=== PATIENT | male | born 1985 | race Caucasian/White ===

== ENCOUNTER 2020-02-20 12:44 | Emergency (ER) | payer MEDICAID, SELFPAY ==
[2020-02-20 12:46] VITALS: BP 144/82; PULSE 81; RESP 16; TEMP 37.4; O2SAT 96; BMI 21.4
--- NOTE | 2020-02-20 13:05 | EKG12_ITS ---
Test Reason : CP Blood Pressure : / mmHG Vent. Rate : 067 BPM Atrial Rate : 067 BPM P-R Int : 172 ms QRS Dur : 108 ms QT Int : 412 ms P-R-T Axes : 059 055 039 degrees QTc Int : 435 ms Somatic/Motion Artifact Normal sinus rhythm Normal ECG Confirmed by MIRNA BOLES, GOKUL ([id number]), slot editor OPAL JOHN ([id number]) on 02/22/2020 12:56:34 PM Referred By: PATRICIA Confirmed By:GOKUL BRADLEY MD
--- NOTE | 2020-02-20 13:06 | RAD_ITS ---
STUDY: X-RAY CHEST REASON FOR EXAM: Male, 34 years old. CHEST PAIN AND HEADACHE X3 WEEKS -- PATIENT REPORTS SEIZURES/JOLTS AT NIGHT X3-4 WEEKS TECHNIQUE: Single AP portable view of the chest. COMPARISON: None. FINDINGS: The lungs are clear and expanded. There is no demonstrated pleural abnormality. Normal size heart. Normal mediastinum and eric. Normal visualized pulmonary arteries. Normal visualized aortic arch and descending thoracic aorta. Normal visualized thoracic spine. Normal visualized ribs, clavicles, and shoulders. There is no demonstrated abnormality of the visualized soft tissue structures of the upper abdomen. RAD/Chest 1 View (Portable) IMPRESSION: Normal x-ray examination of the chest. Electronically Signed: Maico Menchaca MD at 15:33 EST , Service support ,
--- NOTE | 2020-02-20 13:09 | ED.VIS.CHEST ---
History of Present Illness Chief Complaint: Chest Pain Informant: Patient Onset: Weeks - 3-4 Activity at onset: Rest Timing: Continuous Quality: Aching - w/ occasional sharp pains Location: Substernal Current Severity: Mild Maximum Severity: Moderate Worsened By: Nothing Relieved By: Nothing Associated Symptoms: - - Patient occasionally gets palpitations and feels a little short of breath, this is brief, and unrelated to his chest discomfort and has been going on for a longer period of time. Negative for: Nausea, Vomiting, Diaphoresis, Dyspnea, Cough, Fever, Lightheadedness, Palpitations Narrative: Patient presenting with a couple different complaints, chest discomfort that has been constant over the several weeks as well as headaches mostly left frontal for similar period of time. He states that his temples a flattened and his skull has become smaller and heterogeneous and he fears he may have a rare bone disorder of the skull that he looked up on the Internet. He states he has been depressed which is why he has waited several weeks to come here, but confirms that he has dealt with depression all of his life and is not currently suicidal or having any suicidal thoughts. He takes medicine for bipolar disorder. - Past Medical History (1) Bipolar disorder Status: Chronic Past Medical History - Allergies and Home Meds Allergies/Adverse Reactions: Allergies Penicillins Allergy (Verified 02/20/20 12:46) FROM [facility]IL[facility] Primary Care Physician: [facility] Doctor,Out of [NON-STAFF] - 1 Week if not improving Lives: Alone Review of Systems General: Denies: Chills, Fever, Sweats Eyes: Denies: Visual changes - bilaterally, Diplopia ENT: Denies: Rhinorrhea, Sore throat Cardiovascular: Reports: Chest pain, Palpitations Respiratory: Denies: Dyspnea, Cough, Dyspnea on exertion Gastrointestinal: Denies: Abdominal pain, Nausea, Vomiting, Diarrhea, Melena, Hematochezia Genitourinary: Denies: Dysuria, Hematuria, Frequency Musculoskeletal: Denies: Myalgias, Neck pain, Back pain, Swelling, Extremity Pain Skin: Denies: Rash, Wounds Neurological: Reports: Headache, - - off-balance. Denies: Weakness, Numbness Psych: Reports: Depression. Denies: Suicidal thoughts, Suicidal ideations Physical Exam Vital Signs/Narrative: Vital Signs Temp Pulse Resp BP Pulse Ox 02/20/20 12:46 99.3 F H 81 16 144/82 H 96 Inital Vital Signs reviewed: Yes General: Well nourished, Well developed, No Acute Distress Head: Normocephalic, Atraumatic Eyes: Perrl, EOMI ENT: Moist mucous membranes, No rhinorrhea Neck: Supple, Nontender Cardiovascular: Regular rate, Regular rhythm, No murmurs Respiratory: No distress, CTA bilaterally, Chest nontender Abdomen: Soft, Nontender, Nondistended, Normal bowel sounds Back: Nontender, Normal Inspection. Negative for: CVA tenderness Extremities: Nontender, No edema. Negative for: Calf Tenderness Skin: Normal color, No rash Neurological: Alert, Oriented x3, Cranial nerves II-XII grossly intact, Normal Strength, Normal Sensation Psychological: Normal Mood, - - depressed affect Diagnostic/Tx/Re-eval Impressions Chest X-Ray 02/20/20 13:06 IMPRESSION: Normal x-ray examination of the chest. Electronically Signed: Maico Menchaca MD at 15:33 EST , Service support , Brain CT 02/20/20 14:17 IMPRESSION: Normal unenhanced CT scan of the brain. Electronically Signed: Maico Menchaca MD at 15:43 EST , Service support , 02/20/20 13:06 Chest 1 View (Portable) [RAD] Stat 02/20/20 14:17 Brain/Head without Contrast [CT] Stat Laboratory Tests 02/20/20 02/20/20 02/20/20 Range/Units 14:00 14:00 14:00 WBC 7.1 (4.4-11.0) K/mm3 RBC 3.88 L (4.6-6.2) M/mm3 Hgb 12.7 L (13.0-16.5) g/dL Hct 36.8 L (40-54) % MCV 94.8 H (80-94) fL MCH 32.7 H (27.0-32.0) pg MCHC 34.5 (32-36) g/dL RDW Std Deviation 40.5 (35.1-43.9) fl RDW Coeff of Lisa 11.7 (11.6-14.6) % Plt Count 206 (150-450) K/mm3 MPV 9.8 (6.2-12.0) fl Immature Gran % (Auto) 0.100 (0.0-0.9) % Neut % (Auto) 65.6 (47-70) % Lymph % (Auto) 25.0 (19-41) % [place] % (Auto) 7.1 (0-10) % Eos % (Auto) 1.6 (0-5) % Baso % (Auto) 0.6 (0-1) % Absolute Neuts (auto) 4.6 (2.0-7.7) X10^3/uL Absolute Lymphs (auto) 1.77 (0.83-4.51) X10^3/uL Nucleated RBC % 0 (0-5) % Sodium 138 (136-145) mmol/L Potassium 3.4 L (3.5-5.1) mmol/L Chloride 102 (98-107) mmol/L Carbon Dioxide 30.0 (21.0-32.0) mmol/L Anion Gap 6 (5-15) BUN 15 (7-18) mg/dL Creatinine 0.99 (0.70-1.30) mg/dL Estim Creat Clear Calc 100.68 ml/min Est GFR (MDRD) Af Amer 111 (>60) mL/min Est GFR (MDRD) Non-Af 92 (>60) mL/min BUN/Creatinine Ratio 15.2 (10-20) RATIO Glucose 97 (74-106) mg/dL Calcium 9.2 (8.5-10.1) mg/dL Troponin I < 0.015 (<0.045) ng/mL - Rhythm Strip Rhythm Strip: Sinus Rhythm Rate: 65 Ectopy: None - EKG Initial EKG Interpretation: Sinus Rhythm, No Acute Injury Pattern - normal EKG - Medical Decision Making Patient's work-up was unremarkable. He was reassured about a CT scan, of the nodular sensation she is feeling in his head is likely in his scalp, he has no areas of alopecia, he can follow-up for that. Chest discomfort is a little improved after GI cocktail and his headache is improved after Toradol. Given a prescription for PPI and advised to follow-up for what is likely noncardiac chest pain. ED Disposition - Plan for ED Patient: Disposition: Home or Assisted Living Diagnosis: Chest pain, unspecified, Cephalgia Instructions: ED Chest Pain, Noncardiac Prescriptions: Omeprazole 1 cap PO DAILY 30 Days #30 capsule. Transmission Status: Pending to [id number] Referrals: [facility] Doctor,Out of [NON-STAFF] - 1 Week if not improving
[2020-02-20] MEDS: Mag Hydrox/Al Hydrox/Simeth 30 ML UDC PO (13:52)
[2020-02-20] MEDS: Ketorolac 15 MG/ML Vial 30 MG IV (13:52)
[2020-02-20 13:57] VITALS: PULSE 66; RESP 14; O2SAT 96
--- NOTE | 2020-02-20 14:17 | CT_ITS ---
STUDY: CT BRAIN WITHOUT CONTRAST REASON FOR EXAM: Male, 34 years old. HEADACHE X 3 WEEKS. SEIZURES/JOLTS AT NIGHT RADIATION DOSAGE (If Supplied By Facility): CTDIvol = ( 60.81 ) mGy, DLP = ( 1089.89 ) mGycm TECHNIQUE: Transaxial CT imaging of the brain was performed without administration of intravenous contrast material. Individualized dose optimization techniques were used for this CT. COMPARISON: No relevant priors. FINDINGS: Normal soft tissue structures. Normal calvarium. Normal size ventricles and extra-axial spaces for the patient''s age. Normal white matter tracts of the cerebral hemispheres. Normal basal ganglia and thalami. Normal brainstem. Normal cerebellum. There is no intracranial hemorrhage. There are no findings of an acute ischemic infarction. Normal visualized paranasal sinuses. CT/Brain/Head without Contrast IMPRESSION: Normal unenhanced CT scan of the brain. Electronically Signed: Maico Menchaca MD at 15:43 EST , Service support ,
[2020-02-20 14:19] LABS: Absolute Lymphocyte Count 1.77 X10^3/uL (0.83-4.51); Absolute Neutrophil Count 4.6 X10^3/uL (2.0-7.7); Basophil# 0.04 X10^3/uL; Basophil% 0.6 % (0-1); Eosinophil# 0.11 X10^3/uL; Eosinophils% 1.6 % (0-5); Hematocrit 36.8 % (40-54); Hemoglobin 12.7 g/dL (13.0-16.5); Lymphocyte # 1.77 X10^3/ul (4.0); Mean Corp Hgb Conc 34.5 g/dL (32-36); Mean Corpuscular Hgb 32.7 pg (27.0-32.0); Mean Corpuscular Volume 94.8 fL (80-94); Mean Platelet Vol. 9.8 fl (6.2-12.0); Monocyte% 7.1 % (0-10); NRBC Flagged by Analyzer 0 % (0-5); Neutrophil # 4.64 X10^3/uL (2.7-7.7); Neutrophil % 65.6 % (47-70); Platelet Count 206 K/mm3 (150-450); RBC Distribution Width CV 11.7 % (11.6-14.6); RBC Distribution Width SD 40.5 fl (35.1-43.9); Red Blood Count 3.88 M/mm3 (4.6-6.2); White Blood Count 7.1 K/mm3 (4.4-11.0)
[2020-02-20 16:05] VITALS: BP 144/84; PULSE 73; RESP 18; O2SAT 98
[2020-02-20 16:08] VITALS: BP 144/84; PULSE 68; RESP 17; O2SAT 97
[2020-02-20 16:11] LABS: Anion Gap 6 (5-15); BUN 15 mg/dL (7-18); BUN/Creat Ratio 15.2 RATIO (10-20); Calcium,Total 9.2 mg/dL (8.5-10.1); Chloride 102 mmol/L (98-107); Creatinine, Serum 0.99 mg/dL (0.70-1.30); EST Glomerular Filtration Rate 92 mL/min (>60); Est Glom Filt Rate - Afr Amer 111 mL/min (>60); Estimated Creatinine Clearance 100.68 ml/min; Glucose 97 mg/dL (74-106); Potassium 3.4 mmol/L (3.5-5.1); Sodium Level 138 mmol/L (136-145)
== END 2020-02-20 16:48 | disposition home or self-care (01) ==
PROVIDERS: Emergency Provider Emergency Medicine
DX: R07.9 Chest pain, unspecified (principal); R51.9 Headache, unspecified; F31.9 Bipolar disorder, unspecified; Z79.899 Other long term (current) drug therapy
CPT/HCPCS: 70450; 71045; 80048; 84484; 85025; 93005; 96374; 99285; A4216

== ENCOUNTER → 2022-07-04 | Outpatient (CLI) | payer MEDICAID, SELFPAY ==
--- NOTE | 2022-07-04 08:38 | CT_ITS ---
STUDY: CT PELVIS WITH CONTRAST REASON FOR EXAM: Male, 37 years old. Sacral decubitus ulcer stage IV RADIATION DOSAGE (If Supplied By Facility): CTDIvol = ( 27.40 ) mGy, DLP = ( 1084.70 ) mGycm TECHNIQUE: Transaxial imaging of the pelvis was performed without oral contrast. IV 100mL Isovue-300 was administered intravenously. Multiplanar coronal and sagittal images were reformatted. Individualized dose optimization techniques were used for this CT. COMPARISON: None. FINDINGS: A jejunostomy tube is in situ. Diffuse bladder wall thickening. The bladder is contracted. A suprapubic catheter is seen within the urinary bladder. Normal visualized small intestine. Large amount of fecal material is seen in the rectum. There is evidence of a presacral soft tissue density abutting the sacrum posteriorly. There is evidence of sclerosis of the sacrum at that site suggestive of possible chronic osteomyelitis. There is evidence of a central decubitus ulcer measuring 2.6 cm x 1.3 cm. This abuts the posterior aspect of the distal sacrum. There is no pelvic fluid. There is no pelvic lymphadenopathy or mass lesion. Normal visualized pelvic arteries. Normal abdominal wall. CT/Pelvis WITH IV Contrast IMPRESSION: 2.6 cm x 1.3 cm decubitus ulcer as described. This abuts the overlying sacrum. There is also evidence soft tissue prominence in the presacral space. There is evidence of increased sclerosis of the underlying portion of the sacrum. Chronic osteomyelitis should BE ruled out. Diffuse bladder wall thickening. A suprapubic catheter is seen within the urinary bladder. Electronically Signed: Camilo Turner MD at 14:27 EDT ,
== END | disposition home or self-care (01) ==
LOC: CT 08:32
PROVIDERS: PCP Internal Medicine; Referring Provider Surgery; Visit Provider Surgery
DX: L89.154 Pressure ulcer of sacral region, stage 4 (principal)
CPT/HCPCS: 72193; Q9967